=== PATIENT | male | born 1970 | race Two or more races ===

== ENCOUNTER → 2025-04-14 | Day surgery (SDC) | payer OTHER ==
[2025-04-07 09:54] LABS: Hematocrit 51.2 % (41.0-53.0); Hemoglobin 17.0 g/dL (13.5-17.5); Mean Corpuscular Hemoglobin 31.7 pg (28.0-32.0); Mean Corpuscular Volume 95.5 fL (80.0-100.0); Nucleated Red Blood Cells % 0.2 %
[2025-04-07 10:04] LABS: INR 1.0 (0.9-1.15); Partial Thromboplastin Time 26.6 SEC (24.5-34.5); Prothrombin Time 10.6 sec (9.3-11.8)
[2025-04-07 10:36] LABS: Alanine Aminotransferase 25 U/L (7-40); Alkaline Phosphatase 86 U/L (46-116); Anion Gap 9 (5-15); BUN/Creatinine Ratio 11.3 (10.0-20.0); Blood Urea Nitrogen 13 mg/dL (9-23); Calcium 10.0 mg/dL (8.7-10.4); Carbon Dioxide 30 mmol/L (20-31); Chloride 104 mmol/L (98-107); Potassium 4.7 mmol/L (3.5-5.1); Sodium 143 mmol/L (136-145); Total Protein 7.8 g/dL (5.7-8.2)
[2025-04-07 10:37] LABS: Bilirubin, Total 0.7 mg/dL (0.2-1.0)
[2025-04-07 10:39] LABS: Glucose 143 mg/dL (74-106)
[2025-04-07 10:57] LABS: Albumin 4.8 g/dL (3.2-4.8)
[2025-04-07 11:10] LABS: Urine Protein, UAD Negative (Negative)
[~2025-04-14] VITALS: Ht 172.7 cm; Wt 97.5 kg
[~2025-04-14] MED LIST: ATOR20TA PO; CHOL100067 PO; FEXO-42 PO; LIDOCAINE 2% (LOCAL ANESTH.) PF 5ml SDV ONE; MIDAZOLAM HCL 2MG/2ML 2ml VIAL (1mg/ml) ONE; OMEG1CAP68 PO; ONDANSETRON HCL 4 MG/2 ML VIAL IV PRN; PIO30T PO; PROPOFOL 10 MG/ML 20 ML IV ONE; ZINC50TA7 PO
[2025-04-14 14:26] VITALS: PULSE 90; RESP 16; TEMP 98.1; O2SAT 98
--- NOTE | 2025-04-14 14:34 | DVHOP2 ---
Operative Report DATE OF OPERATION: 04/14/25 PROCEDURE: Colonoscopy with cold biopsy polypectomy. PREOPERATIVE INDICATION: The patient is a 54 -year-old male undergoing colonoscopy for colon cancer screening POSTOPERATIVE DIAGNOSES: 1. There were two less than 5 mm benign-appearing transverse colon polyps were seen and removed by cold biopsy forceps 2. There was one 2 mm benign-appearing descending colon polyp that was seen and removed by cold biopsy forceps 3. Trace internal hemorrhoids otherwise completely normal colonoscopy examination up to the cecum and terminal ileum PROCEDURE PERFORMED BY: Vika Meneses M.D. SCOPE: Olympus videocolonoscope. ASA CLASS: 2. PREOPERATIVE MEDICATIONS: Dr. Gulshan Prajapati PROCEDURE IN DETAIL: After obtaining an informed consent, the patient was placed on left lateral decubitus position. He was then sedated with the above medications. A rectal examination was performed that was normal. The colonoscope was then passed through the anus into the rectosigmoid and through the descending, transverse, and ascending colon up to the cecum with visualization of the appendiceal orifice, base of the cecum and the ileocecal valve. The colonoscope was then withdrawn. The distal 3-5 cm of the terminal ileum were normal No masses or colitis was noted. Patient had two less than 5 mm benign-appearing colon polyps These were removed completely via cold biopsy forceps. There was another 2 mm benign-appearing descending colon polyp This was removed completely via cold biopsy forceps. There was no clear-cut diverticular disease. On retroflexion and straight on view he had trace internal hemorrhoids. The patient tolerated the procedure well without difficulty. WITHDRAWAL TIME: 6 minutes QUALITY OF THE PREP: [place] Bowel Prep score: 9. COMPLICATIONS : None SPECIMENS: Transverse colon polyps x2 Descending colon polyp x1 DISPOSITION: Stable D/C to home PLAN: 1. Repeat colonoscopy base on biopsy result likely in 3-5 years 2. Resume GI soft diet advance as tolerated 3. Local anorectal hemorrhoidal care 4. Outpatient follow up with me in 2-4 weeks to review results and discuss further management VIKA MENESES MD Apr 14, 2025 14:34
[2025-04-14 14:56] VITALS: BP 120/78; PULSE 80; RESP 20; O2SAT 96
== END | disposition home or self-care (01) ==
LOC: GI 11:55
PROVIDERS: ATTEND Internal Medicine Gastroenterology
DX: Z12.11 Encounter for screening for malignant neoplasm of colon (principal); D12.4 Benign neoplasm of descending colon; K63.89 Other specified diseases of intestine; K64.8 Other hemorrhoids; K21.9 Gastro-esophageal reflux disease without esophagitis; E11.9 Type 2 diabetes mellitus without complications; Z79.899 Other long term (current) drug therapy
CPT/HCPCS: 36415; 45380; 80053; 81001; 82962; 85025; 85610; 85730; 88305; J2003; J2250; J2704; J7030